=== PATIENT | male | born 1990 | race Caucasian/White ===

== ENCOUNTER → 2023-12-28 14:03 | Outpatient (REF) | payer BC, SELFPAY | LOC: HWRAD 14:03 | PROVIDERS: ATTENDING PHYSICIAN Physician Assistant; FAMILY PHYSICIAN Nurse Practitioner Family | DX: M25.561 Pain in right knee (principal) | CPT/HCPCS: 73564 ==

== ENCOUNTER 2024-02-10 06:21 | Day surgery (SDC) | payer BC, SELFPAY ==
[2024-02-10] VITALS (8 sets, daily range): BP systolic 96–129; BP diastolic 54–91; BMI 22.5
[2024-02-10] MEDS: MOBIC 15 MG PO (07:42)
[2024-02-10] MEDS: TYLENOL 1000 MG PO (07:42)
[2024-02-10] MEDS: NORMOSOL-R 1000 IV (07:54)
== END 2024-02-10 12:16 | disposition home or self-care (01) ==
LOC: SDS 06:21
PROVIDERS: ATTENDING PHYSICIAN Orthopaedic Surgery
DX: S83.281A Other tear of lateral meniscus, current injury, right knee, initial encounter (principal); X50.9XXA Other and unspecified overexertion or strenuous movements or postures, initial encounter; Z98.890 Other specified postprocedural states
CPT/HCPCS: 29881